=== PATIENT | female | born 1940 | race Caucasian/White ===

== ENCOUNTER 2018-09-05 19:45 | Emergency (ER) | payer OTHER ==
[~2018-09-05] VITALS: Ht 162.6 cm; Wt 76.2 kg
[2018-09-05] MEDS ORDERED: COZAAR50 MG (20:11)
[2018-09-05] MEDS ORDERED: COREG CR20 MG (20:12)
[2018-09-05] MEDS ORDERED: ASPIR 8181 MG (20:12)
[2018-09-06] MEDS ORDERED: LEVSIN/SL0.125 MG SL (01:49)
[2018-09-06] MEDS ORDERED: ZOFRAN ODT4 MG SL (01:49)
[2018-09-06] MEDS ORDERED: PEPCID AC20 MG PO (01:49)
== END 2018-09-06 01:42 | disposition home or self-care (01) ==
LOC: ER 19:45
DX: K29.70 Gastritis, unspecified, without bleeding (principal); B34.9 Viral infection, unspecified

== ENCOUNTER 2023-09-12 14:27 | Emergency (ER) | payer OTHER ==
[~2023-09-12] VITALS: Ht 167.6 cm; Wt 90.7 kg
[~2023-09-12 14:27] MED LIST: ASPIR 8181 MG; COREG CR20 MG; COZAAR50 MG; LEVSIN/SL0.125 MG SL; PEPCID AC20 MG PO; ZOFRAN ODT4 MG SL
[2023-09-12] MEDS ORDERED: DEXTROSE 5 %-0.45 % SOD CHLORD 1,000 ML IV STA (16:08)
[2023-09-12] MEDS ORDERED: LEVALBUTEROL HCL 1.25 MG/3 ML SOLUTION IH STA (16:08)
[2023-09-12] MEDS ORDERED: BUDESONIDE 0.5 MG/2 ML AMPUL.NEB IH STA (16:09)
[2023-09-12 17:53] LABS: ABG PH 7.431 (7.35-7.45); ABG PO2 74.1 mmHg (80-100); ABG pCO2 36.2 mmHg (35-45); BASE EXCESS -0.3 mmol/l; BICARBONATE 23.5 mmol/l (23-25); SaO2 95.1 %; Tco2 24.6 mmol/l; allen test SATISFACTORY; o2 21 %; puncture site RADIAL LEFT
[2023-09-12 18:10] LABS: CALCIUM 8.8 mg/dL (8.5-10.1); CREATININE SERUM 0.71 mg/dL (0.55-1.02); GFR 78.62; POTASSIUM 4.4 mEq/L (3.5-5.1)
[2023-09-12 18:11] LABS: C-REACTIVE PROTEIN 2.18 MG/DL (0.00-0.29)
[2023-09-12 19:14] LABS: HEMATOCRIT 37.9 % (36.0-45.00); HEMOGLOBIN 12.5 g/dL (12.0-15.00); MEAN CELL VOLUME 85.5 fL (80.00-100.00); MEAN CORPUSCULAR HEMOGLOBIN 28.1 pg (27.00-32.0); MEAN CORPUSCULAR HGB CONC 32.9 g/dl (32.0-36.0); PLATELET COUNT 185 K/uL (150-450); RED BLOOD COUNT 4.44 M/uL (4.00-6.00)
[2023-09-12] MEDS ORDERED: ONDANSETRON HCL 2 MG/ML VIAL IV ONE (19:45)
[2023-09-12] MEDS ORDERED: IPRATROPIUM BROMIDE 0.5 MG/2.5 ML AMPUL.NEB IH SCH (20:15)
[2023-09-12] MEDS ORDERED: CEFTRIAXONE SODIUM 1,000 MG VIAL IV ONE (22:30)
== END 2023-09-13 01:47 | disposition home or self-care (01) ==
LOC: ER 14:27
PROVIDERS: Emergency Medicine
DX: J00 Acute nasopharyngitis [common cold] (principal); J40 Bronchitis, not specified as acute or chronic; E86.0 Dehydration; R11.10 Vomiting, unspecified; Z88.2 Allergy status to sulfonamides; Z88.6 Allergy status to analgesic agent; N39.0 Urinary tract infection, site not specified; Z20.822 Contact with and (suspected) exposure to COVID-19
CPT/HCPCS: 36415; 82803; 94640; 96365; 96366; 99284; J0696; J2405; J7070

== ENCOUNTER 2024-01-29 13:47 | Emergency (ER) | payer OTHER ==
[~2024-01-29] VITALS: Ht 160 cm; Wt 72.6 kg
[2024-01-29] MEDS ORDERED: 0.9 % SODIUM CHLORIDE 1,000 ML IV SCH (15:15)
[2024-01-29] MEDS ORDERED: CEFTRIAXONE SODIUM 2,000 MG VIAL IV ONE (15:15)
[2024-01-29 16:22] LABS: HEMATOCRIT 38.3 % (36.0-45.00); HEMOGLOBIN 12.9 g/dL (12.0-15.00); MEAN CELL VOLUME 85.7 fL (80.00-100.00); MEAN CORPUSCULAR HEMOGLOBIN 28.9 pg (27.00-32.0); MEAN CORPUSCULAR HGB CONC 33.7 g/dl (32.0-36.0); PLATELET COUNT 175 K/uL (150-450); RED BLOOD COUNT 4.47 M/uL (4.00-6.00); RED CELL DISTRIBUTION WIDTH 15.7 % (11.5-14.5)
[2024-01-29] MEDS ORDERED: CEFTRIAXONE SODIUM 2,000 MG VIAL ONE (16:46)
[2024-01-29 17:05] LABS: URINE APPEARANCE Clear; URINE BILIRRUBIN Negative (NEGATIVE); URINE BLOOD Negative; URINE COLOR Yellow; URINE GLUCOSE Negative (NEGATIVE); URINE LEUKOCYTE Trace; URINE NITRATE Negative; URINE PROTEIN Negative (NEGATIVE); URINE UROBILINOGEN 0.2 E.U./dl
[2024-01-29 17:05] LABS: ALBUMIN 3.4 gm/dL (3.4-5.0); BILIRUBIN TOTAL 0.71 mg/dL (0.3-1.2); CALCIUM 9.1 mg/dL (8.5-10.1); CREATININE SERUM 0.62 mg/dL (0.55-1.02); GFR 91.93; GLOBULINA 4.9 G/DL (2.4-3.5); POTASSIUM 4.39 mEq/L (3.5-5.1); TOTAL PROTEIN 8.3 gm/dL (6.4-8.2)
[2024-01-29 17:09] LABS: URINE BACTERIA 23.9 uL (0.0-1933); URINE EPITHELIAL CELLS 1.3 uL (0.0-38.8); URINE RBC 0.3 uL (0.0-20.8); URINE WBC 6.9 uL (0.0-23.2)
== END 2024-01-29 20:37 | disposition home or self-care (01) ==
LOC: ER 13:47
PROVIDERS: General Practice
DX: N39.0 Urinary tract infection, site not specified (principal); Z88.2 Allergy status to sulfonamides; R11.2 Nausea with vomiting, unspecified; K29.70 Gastritis, unspecified, without bleeding
CPT/HCPCS: 36415; 96365; 96366; 99282; J0696; J7030